=== PATIENT | male | born 1950 | race Caucasian/White ===

== ENCOUNTER 2020-04-01 17:44 | Emergency (ER) | payer OTHER, SELFPAY ==
[2020-04-01 18:07] VITALS: BP 179/80; PULSE 85; RESP 16; TEMP 36.5; O2SAT 96; BMI 33.5
--- NOTE | 2020-04-01 19:12 | ED_ITS ---
HPI - Male Genitourinary General: Chief complaint: Urogenital-Male Stated complaint: can't urinate Time Seen by Provider: 04/01/20 19:11 History of Present Illness: HPI Narrative: Patient is a 69-year-old male who comes to the ED [facility] because he was having some urine retention and an elevated blood pressure. Patient said he was not having any pain or discomfort. Patient said on the way here to the ED he stopped at a gas station just prior to arrival at the ED because his bladder felt full and he was able to urinate. Patient says he urinated a lot and he described his urine stream is normal. Currently here in the ED he was able to a urinate a little bit in a cup for us so we can send it to lab. Patient has no symptoms, and was able to urinate just prior to arrival to the ED. Associated symptoms: Deny dysuria, hematuria, nausea or vomiting Review of Systems Const: Denies: fever(s), chills or fatigue Eyes: Denies: change in vision or eye discomfort ENMT: Denies: throat pain, odynophagia, nasal discharge or nasal congestion Card: Denies: chest pain, palpitations, edema, swelling of feet/ankles, dyspn ea on exertion or orthopnea Resp: Denies: dyspnea, productive cough or non-productive cough GI: Denies: abdominal pain, nausea, vomiting, diarrhea, constipation or hematochezia : Denies: flank pain, difficulty urinating, dysuria or hematuria Musc: Denies: neck pain, back pain or extremity swelling Skin/Breast: Denies: rash or new lesions Neuro: Denies: headache(s), numbness in extremities or weakness in extremities PFS ED PFSH: Social History Smoking and tobacco status: never smoked Physical Exam Const: COMMON NORMALS: no acute distress, patient oriented x3, healthy errol earing and alert GENERAL APPEARANCE: cooperative and comfortable HENMT: COMMON NORMALS: normocephalic HEAD & SCALP: normocephalic MOUTH: Normal oral and palatal mucosa present THROAT: posterior oropharynx normal and uvula midline Eye: COMMON NORMALS: Equal, round and reactive pupils present PUPIL: Yes Equal, round and reactive pupils present Neck/C-Spine: COMMON NORMALS: supple GENERAL: Yes normal visual inspection Resp: COMMON NORMALS: normal respiratory effort, No retractions, No use of accessory muscles and clear to auscultation bilaterally AUSCULTATION: clear to auscultation bilaterally Cardio: COMMON NORMALS: regular rate, regular rhythm, S1 normal heart sound present, S2 normal heart sound present, No gallops present (Cardio), No clicks present (Cardio), No murmurs present (Cardio) and Peripheral pulses 2+ throughout RATE: regular rate RHYTHM: regular rhythm HEART SOUNDS: S1 normal heart sound present and S2 normal heart sound present PERIPHERAL PULSES: Peripheral pulses 2+ throughout GI: COMMON NORMALS: Normal to inspection, nondistended, normoactive bowel sounds present, Soft to palpation, non-tender and no masses PALPATION: Yes Soft to palpation : COMMON NORMALS: Yes no CVA tenderness BLADDER/KIDNEY EXAM: Yes no CVA tenderness Back/Pelvis: COMMON NORMALS: no CVA tenderness Extremity: COMMON NORMALS: normal to inspection Neuro: COMMON NORMALS: patient oriented x3 and moves all extremities SENSORIUM/ORIENTATION: Yes alert Skin: GENERAL SKIN EXAM: dry skin Course Vital Signs: Vital signs: Vital Signs Temperature 97.7 F 04/01/20 18:07 Pulse Rate 80 04/01/20 21:48 Respiratory Rate 17 04/01/20 21:48 Blood Pressure 149/87 04/01/20 21:48 Pulse Oximetry 97 04/01/20 21:48 MDM - Male MDM Narrative: Medical decision making narrative: Patient is a 69-year-old male that was sent over to the ED by the OR due to possible urinary retention and elevated blood pressure. While patient was driving to ED he stopped the gas station and was able to urinate normally. He is currently asymptomatic here in the ED and his blood pressure was 149/87, which she says is normal for him. Abdominal exam was normal. UA was unremarkable. Patient [facility] this coming [facility]. Patient was discharged and told he can return to ED if he has any worsening symptoms or urinary retention. Patient understood and agreed with plan. Lab Data: Attestation: I reviewed the patient's lab results. Labs: Lab Results 04/01/20 Range/Units 18:30 Urine Color Yellow (Yellow) Urine Appearance Clear (CLEAR) Urine pH 5 (5-7) Ur Specific Gravit y 1.025 (1.005-1.030) Urine Protein Neg (Negative) Urine Glucose (UA) Norm (Normal) Urine Ketones Negative (Negative) Urine Blood Neg (Negative) Urine Nitrate Negative (Negative) Urine Bilirubin Neg (NEGATIVE) Urine Urobilinogen Norm (Negative) mg/dL Ur Leukocyte Iman ase Negative (Negative) Discharge Plan Discharge Patient Disposition: Home, Self-Care Clinical Impression: Normal abdominal exam, Normal blood pressure, Asymptomatic Condition: Stable Discharge Orders: Discharge Order (Routine); Ordered 04/01/20 Ordered By: Travis Chauhan Referrals: Juan Carlos Velásquez [Primary Care Provider] - Discharge Diet: Regular Discharge Activity: Resume usual activity Activity Restrictions/Additional Instructions: Go to your next [facility] for further evaluation. You can always return to the ED for reevaluation, if you start experiencing any abdominal pain, increased BP and are unable to urinate. Discharge Date/Time: 04/01/20 21:49 Coding Level of Care Code ED Escalator Installer for Mahesh Fwd Exam Comprehensive
[2020-04-01 19:15] LABS: Add Urine Microscopic? NO
--- NOTE | 2020-04-01 19:18 | PC.NURSE ---
patient states he has been having trouble urinating the last three days. patient states he drank 8 bottle of water yesterday while mowing the lawn and hasn't been able to urinate more that a few milliliters since. patient states he has no abdominal pain. patient states he has not had the same symptoms in the past.
[2020-04-01 19:20] VITALS: BP 166/92; PULSE 81; RESP 16; O2SAT 96
[2020-04-01 19:20] LABS: Blood Urine Neg (Negative); Glucose Urine UA Norm (Normal); Ketones Urine Negative (Negative); Protein Urine Neg (Negative); Specific Gravity, Urine 1.025 (1.005-1.030); Urine Appearance Clear (CLEAR); Urine Color Yellow (Yellow); pH Urine 5 (5-7)
[2020-04-01 19:21] LABS: Bilirubin Urine Neg (NEGATIVE); Leukocyte Esterase Urine Negative (Negative); Nitrate Urine Negative (Negative); Urobilinogen Urine Norm (Negative)
[2020-04-01 21:48] VITALS: BP 149/87; PULSE 80; RESP 17; O2SAT 97
== END 2020-04-01 21:49 | disposition home or self-care (01) ==
PROVIDERS: Family Medicine; Emergency Provider Physician Assistant; PCP Internal Medicine
DX: Z03.89 Encounter for observation for other suspected diseases and conditions ruled out (principal)
CPT/HCPCS: 12345; 81003; 99282

== ENCOUNTER 2020-12-27 17:20 | Emergency (ER) | payer OTHER, SELFPAY ==
--- NOTE | 2020-12-27 | CTR_ITS ---
PROCEDURE INFORMATION: Exam: CT Head Without Contrast Exam date and time: 12/27/2020 7:58 PM Age: 70 years old Clinical indication: Altered mental status/memory loss and visual disturbance; Confusion or disorientation; Additional info: CVA TECHNIQUE: Imaging protocol: Computed tomography of the head without contrast. Radiation optimization: All CT scans at this facility use at least one of these dose optimization techniques: automated exposure control; mA and/or kV adjustment per patient size (includes targeted exams where dose is matched to clinical indication); or iterative reconstruction. COMPARISON: No relevant prior studies available. RADIATION DOSE METRICS: Total DLP (mGy-cm): 1005.5 FINDINGS: Brain: There is moderate cerebral atrophy. There is moderate diffuse heterogeneity of the white matter attenuation, consistent with chronic white matter ischemic changes. No intracranial hemorrhage. No intracranial mass. No midline shift of brain. Nicholson matter and white matter differentiation is preserved. Cerebral ventricles: No ventriculomegaly. Bones/joints: Unremarkable. No acute fracture. Paranasal sinuses: Visualized sinuses are unremarkable. No fluid levels. Mastoid air cells: Visualized mastoid air cells are well aerated. Vasculature: Scattered intracranial atherosclerosis. Soft tissues: Unremarkable. CT/CT head wo con* [id number] IMPRESSION: No acute intracranial abnormality identified. Radiation Dose CTDIVOL = (mGy): DLP = 1005.5 (mGy-cm)
[2020-12-27 17:27] VITALS: BP 171/90; PULSE 93; RESP 18; TEMP 36.9; O2SAT 97; BMI 32.5
[2020-12-27 18:27] VITALS: BP 191/94; PULSE 83; RESP 20; O2SAT 98
--- NOTE | 2020-12-27 18:30 | ED_ITS ---
HPI - Abdominal Pain General: Chief Complaint: Abdominal Pain Stated Complaint: CONSTIPATION X 7 DAYS, CONFUSION Time Seen by Provider: 12/27/20 18:21 History of Present Illness: HPI narrative: This patient is a 70-year-old male who presents to the emergency department with a complaint of abdominal pain. Patient states he has not had a bowel movement in 7 days. While in the waiting room the patient had a significant bowel movement and all symptoms resolved. At the bedside we were talking to the patient the daughter states that when she picked him up the patient seemed to be a little confused. The patient states is because he needed to have a bowel movement so bad. But the daughter has some concerns. I did discuss at length with patient about this transient complaint of confusion and the patient denies this. I again offered a full medical scre ening exam to the patient with family present we did review patient's blood pressure and blood pressure medications. Patient states he always has high blood pressure and he has declined a medical screening exam. Wishes to be discharged home nursing staff was present during this interview. Patient will be discharged home per his request. If symptoms fail to improve or worsen patient should return immediately to the emergency department for a medical screening exam. MD elicited complaint: abdominal pain Pertinent past history: constipation Associated Symptoms: Reports constipation; Denies chills, dysuria, fever(s), nausea and vomiting Review of Systems General: Reports: 10 or more systems reviewed and unremarkable except in HPI and below Const: Denies: fever(s), chills, body aches or fatigue Eyes: Denies: change in vision or blurry vision ENMT: Denies: throat pain, hoarseness or mouth pain Card: Denies: chest pain, palpitations, irregular heart rhythm, edema, swelling of feet/ankles or lightheadedness Resp: Denies: dyspnea, productive cough, non-productive cough, wheezing or pain on inspiration GI: Reports: abdominal pain and constipation; Denies: nausea or vomiting : Reports: flank pain; Denies: dysuria, urinary frequency, urinary urgency or urinary hesitancy Musc: Denies: neck pain, back pain, extremity pain, extremity swelling, joint pain, joint swelling, joint redness, joint warmth or limited range of motion Skin/Breast: Denies: rash, pruritus, erythema or skin tenderness Neuro: Denies: headache(s), numbness in extremities or weakness in extremities Psych: Denies: anxiety or depression PFSH ED PFSH: Social History Smoking and tobacco status: never smoked Physical Exam Const: COMMON NORMALS: no acute distress, average body habitus, patient oriented x3, no limitations, healthy appearing, alert and well nourished HENMT: COMMON NORMALS: normocephalic, atraumatic, external ears normal, EAC's normal, TM's normal bilaterally, Normal external nose present and Normal nasal mucous membranes and turbinates present HEAD & SCALP: normocephalic and atraumatic NOSE: Normal external nose present and Normal nasal mucous membranes and turbinates present EXTERNAL EAR: Yes external ears normal EXTERNAL AUDITORY CANAL: EAC's normal TYMPANIC MEMBRANE: TM's normal bilaterally Neck/C-Spine: COMMON NORMALS: full ROM, no lymphadenopathy, supple, no meningeal signs, no JVD, Thyroid normal and No carotid bruits THYROID: Thyroid normal Chest: COMMONS NORMALS: normal inspection of the chest, normal palpation of entire chest wall, normal inspection of the breasts and normal palpation of the breasts Breast/axilla inspection: Yes normal inspection of the breasts BREAST/AXILLA PALPATION: Yes normal palpation of the breasts Resp: COMMON NORMALS: normal respiratory effort, No retractions, No use of accessory muscles, clear to auscultation bilaterally and percussion normal AUSCULTATION: clear to auscultation bilaterally PERCUSSION: percussion normal Cardio: COMMON NORMALS: no JVD, regular rate, regular rhythm, S1 normal heart sound present, S2 normal heart sound present, No gallops present (Cardio), No clicks present (Cardio), No murmurs present (Cardio), No rub (Cardio) and Peripheral pulses 2+ throughout RATE: regular rate RHYTHM: regular rhythm HEART SOUNDS: S1 normal heart sound present and S2 normal heart sound present PERIPHERAL PULSES: Peripheral pulses 2+ throughout GI: COMMON NORMALS: Normal to inspection, nondistended, normoactive bowel sounds present, Soft to palpation, non-tender, No hepatosplenomegaly present, no masses and no bruits PALPATION: Yes Soft to palpation and Yes No hepatosplenomegaly present : COMMON NORMALS: Yes no CVA tenderness BLADDER/KIDNEY EXAM: Yes no CVA tenderness Back/Pelvis: COMMON NORMALS: no CVA tenderness, thoracic and lumbar spine normal to inspection, no thoracic nor lumbar tenderness, thoraco-lumbar ROM normal and straight leg raise negative bilaterally Extremity: COMMON NORMALS: normal to inspection, full ROM, capillary refill normal, no joint enlargement, no clubbing, cyanosis or edema, no calf tenderness and no pedal edema Neuro: COMMON NORMALS: patient oriented x3 SENSORIUM/ORIENTATION: Yes alert MENINGEAL SIGNS: Yes no meningeal signs Course ED course: Patient was offered a complete medical screening exam for his complaints and daughter's concerns transient confusion. He has declined a medical screening exam. Wishes to be discharged home nursing staff was present during this interview. Patient will be discharged home per his request. If symptoms fail to improve or worsen patient should return immediately to the emergency department for a medical screening exam. Vital Signs: Vital signs: Vital Signs Temperature 98.5 F 12/27/20 17:27 Pulse Rate 83 12/27/20 18:27 Respiratory Rate 20 H 12/27/20 18:27 Blood Pressure 191/94 12/27/20 18:27 Pulse Oximetry 98 12/27/20 18:27 MDM - Abdominal Pain Differential Diagnosis: Differential diagnosis abdominal pain: Likely abdominal pain and constipation Medical Records: Attestation: I reviewed the patient's medical records. Discharge Plan Discharge Patient Disposition: Home Clinical Impression: Constipation Condition: Stable Discharge Orders: Discharge ED (Routine); Ordered 12/27/20 Ordered By: Matt Can Referrals: Juan Carlos Velásquez [Primary Care Provider] - Discharge Diet: Usual diet Discharge Activity: Resume usual activity Patient Instructions: Opioid Safety Activity Restrictions/Additional Instructions: You are being discharged home per your request. If symptoms fail to improve or worsen return to the emergency department for a full medical screen exam. Encourage p.o. fluids. Zofran as needed and needed for nausea vomiting Take medications as prescribed Follow-up with your primary care physician in 2 to 3 days Tylenol Motrin as needed again for fever or pain Brown Cow Mix 4 ounces of prune juice with 2 ounces of milk of magnesium and 1 tablespoon of salted butter. Heat and microwave until bladder is softened. STIR and drink. Do not drink hot. It should be warm when you drink it. May do this twice daily to help with constipation. May take [id number] Senokot 8.6 mg once daily. May also take MiraLAX 1 packet twice a day as needed to help with constipation. As needed [id number] fleets enemas also if needed for constipation. Coding Level of Care Code ED Bus And Sys Integration Senior Manager for Mahesh Morse
--- NOTE | 2020-12-27 18:46 | CTR_ITS ---
PROCEDURE INFORMATION: Exam: CT Angiography Head With Contrast, Arteries Exam date and time: 12/27/2020 7:58 PM Age: 70 years old Clinical indication: Memory loss and visual disturbance and other: Confusion; Additional info: CVA TECHNIQUE: Imaging protocol: Computed tomography angiography of the head with intravenous contrast. 3D rendering (Not supervised by radiologist): MIP and/or 3D reconstructed images were created by the technologist. Radiation optimization: All CT scans at this facility use at least one of these dose optimization techniques: automated exposure control; mA and/or kV adjustment per patient size (includes targeted exams where dose is matched to clinical indication); or iterative reconstruction. Contrast material: OMNI 350; Contrast volume: 95 ml; Contrast route: INTRAVENOUS (IV); COMPARISON: No relevant prior studies available. RADIATION DOSE METRICS: Total DLP (mGy-cm): 2778.4 FINDINGS: ANTERIOR CIRCULATION: Right internal carotid artery: The moderate calcified atherosclerotic plaque volume in the cavernous segment right ICA with mild stenosis less than 50%. Right middle cerebral artery: Unremarkable. No occlusion or significant stenosis. No aneurysm. Right anterior cerebral artery: Unremarkable. No occlusion or significant stenosis. No aneurysm. Left internal carotid artery: Calcified atherosclerotic plaque volume cavernous segment left ICA with mild stenosis less than 50%. Left middle cerebral artery: Unremarkable. No occlusion or significant stenosis. No aneurysm. Left anterior cerebral artery: Unremarkable. No occlusion or significant stenosis. No aneurysm. POSTERIOR CIRCULATION: Right vertebral artery: Right vertebral artery occluded. Left vertebral artery: Unremarkable. No occlusion or significant stenosis. No aneurysm. Basilar artery: Unremarkable. No occlusion or significant stenosis. No aneurysm. Right posterior cerebral artery: Unremarkable. No occlusion or significant stenosis. No aneurysm. Left posterior cerebral artery: Unremarkable. No occlusion or significant stenosis. No aneurysm. Brain: No definite mass, mass effect, or midline shift. Cerebral ventricles: No ventriculomegaly. Bones/joints: Unremarkable. No acute fracture. Soft tissues: Unremarkable. IMPRESSION: 1. Occlusion of right vertebral artery. 2. No cerebral artery occlusions. PROCEDURE INFORMATION: Exam: CT Angiography Neck With Contrast Exam date and time: 12/27/2020 7:58 PM Age: 70 years old Clinical indication: Memory loss and visual disturbance and other: Confusion; Additional info: CVA TECHNIQUE: Imaging protocol: Computed tomography angiography of the neck with intravenous contrast. 3D rendering (Not supervised by radiologist): MIP and/or 3D reconstructed images were created by the technologist. Radiation optimization: All CT scans at this facility use at least one of these dose optimization techniques: automated exposure control; mA and/or kV adjustment per patient size (includes targeted exams where dose is matched to clinical indication); or iterative reconstruction. Contrast material: OMNI 350; Contrast volume: 95 ml; Contrast route: INTRAVENOUS (IV); COMPARISON: No relevant prior studies available. RADIATION DOSE METRICS: Total DLP (mGy-cm): 2778.4 FINDINGS: Right common carotid artery: No stenosis. No dissection or occlusion. Right internal carotid artery: Large volume of calcified and noncalcified atherosclerotic plaque of the proximal right internal carotid artery. Severe stenosis appears slightly greater than 70%. Right external carotid artery: Large atherosclerotic plaque volume at the origin of the right external carotid artery with severe stenosis greater than 70%. Right vertebral artery: Right vertebral artery is occluded throughout its course. Left common carotid artery: No stenosis. No dissection or occlusion. Left internal carotid artery: Large, bulky calcified and noncalcified atherosclerotic plaque volume of the proximal left internal carotid artery. Severe stenosis greater than 90% noted. Left external carotid artery: Moderate atherosclerotic plaque volume at the origin of the left external carotid artery with moderate stenosis 50-69%. Left vertebral artery: No stenosis. No dissection or occlusion. Bones/joints: The cervical spine demonstrates marked degenerative changes at multiple levels. Cervical spinal alignment is unremarkable. No acute fractures are identified. Soft tissues: Normal. No significant soft tissue swelling. CT/CT angio headneck* [id number] IMPRESSION: 1. 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 2. Severe stenosis of the proximal left internal carotid artery greater than 90%. 3. Severe stenosis of the proximal right internal carotid artery greater than 70%. REFERENCES: NASCET CRITERIA. The degree of internal carotid artery stenosis is based on NASCET criteria. Normal is no stenosis. Mild is less than 50% stenosis. Moderate is 50-69% stenosis. Severe is 70% to 99% stenosis. Total occlusion is no detectable patent lumen. Radiation Dose CTDIVOL = (mGy): DLP = 2778.4~2778.4 (mGy-cm)
--- NOTE | 2020-12-27 18:47 | ECG_ITS ---
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 Measurements Intervals [place] Rate: 87 P: UT: QRS: -9 QRSD: 115 T: 83 QT: 332 QTc: 401 Interpretive Statements Sinus RHYTHM MODERATE INTRAVENTRICULAR CONDUCTION DELAY [110+ ms QRS DURATION] ABNORMAL RHYTHM ECG No previous ECG available for comparison Electronically Signed On 12-28-2020 7:33:55 CDT by Martha Meehan M.D. [id number]
[2020-12-27 18:56] LABS: Basophils # 0.1 10^3/uL (0.0-0.1); Basophils % 1.2 %; Eosinophils # 0.3 10^3/uL (0.0-0.8); Eosinophils % 2.9 %; Hemoglobin 16.1 g/dL (11.7-16.6); Lymphocytes # 2.6 10^3/uL (0.8-4.8); Lymphocytes % 27.7 %; Mean Corpuscular Hemoglobin 30.4 pg (28.0-34.0); Mean Corpuscular Volume 86.8 fL (80-94); Mean Platelet Volume 10.8 fL (7.4-10.4); Monocytes # 0.7 10^3/uL (0.2-0.9); Monocytes % 7.5 %; Neutrophils # 5.62 10^3/uL (1.8-7.7); Neutrophils % 60.3 %; Nucleated Red Blood Cells % 0 %; Platelet Count 258 10^3/cmm (130-400); White Blood Count 9.3 10^3/uL (4.0-10.0)
[2020-12-27 19:01] LABS: INR 1.05 (0.8-1.2)
[2020-12-27 19:02] LABS: Partial Thromboplastin Time 35.1 SECONDS (23.9-36.7)
[2020-12-27 19:05] LABS: Alanine Aminotransferase 27 U/L (0-41); Albumin Level 4.5 g/dL (3.5-5.2); Alkaline Phosphatase 101 IU/L (40-130); Anion Gap 17.7 (5-19); Aspartate Amino Transferase 22 U/L (0-40); Blood Urea Nitrogen 17 mg/dL (8-23); Calcium 10.1 mg/dL (8.5-10.5); Carbon Dioxide 23 mmol/L (22-29); Chloride 99 mmol/L (98-107); Globulin 3.8 g/dL (1.3-4.6); Glomerular Filtration Rate 74.1 mL/min (90-130); Glucose 141 mg/dL (65-115); Osmolality Calculated 286 mOsm/kg (285-295); Potassium 3.7 mmol/L (3.5-5.1); Sodium 136 mmol/L (136-145); Total Bilirubin 0.6 mg/dL (0.15-1.2); Total Protein 8.3 g/dL (6.6-8.7)
[2020-12-27 19:27] LABS: Add Urine Microscopic? NO
[2020-12-27 19:36] LABS: Urine Appearance Clear (CLEAR); Urine Color Yellow (Yellow); pH Urine 5 (5-7)
[2020-12-27 19:37] LABS: Bilirubin Urine Neg (Negative); Blood Urine Neg (Negative); Glucose Urine UA Norm (Normal); Ketones Urine Negative (Negative); Leukocyte Esterase Urine Negative (Negative); Nitrate Urine Negative (Negative); Protein Urine Neg (Negative); Urobilinogen Urine Norm (Negative)
[2020-12-27 19:41] LABS: Amphetamines Screen Urine Negative (Negative); Barbiturates Screen Urine Negative (Negative); Benzodiazepines Screen Urine Negative (Negative); Cocaine Screen Urine Negative (Negative); Opiate Screen Urine Negative (Negative); PCP Screen Urine Negative (Negative); THC Screen Urine Positive (Negative)
[2020-12-27] MEDS: iohexol 350 mg/mL 100 mL Btl IV (20:13)
[2020-12-27 20:54] VITALS: BP 150/88; PULSE 87; RESP 17; O2SAT 97
[2020-12-27 22:30] VITALS: BP 158/94; PULSE 73; RESP 20; O2SAT 96
[2020-12-27 23:25] VITALS: BP 159/87; PULSE 62; O2SAT 95
== END 2020-12-27 23:37 | disposition home or self-care (01) ==
PROVIDERS: Emergency Provider Emergency Medicine; PCP Internal Medicine
DX: K59.00 Constipation, unspecified (principal); R41.0 Disorientation, unspecified
CPT/HCPCS: 70450; 70496; 70498; 80053; 80306; 81003; 85025; 85610; 85730; 93005; 99285; Q9967

== ENCOUNTER 2023-11-14 22:55 | Emergency (ER) | payer OTHER, SELFPAY ==
[2023-11-14 22:56] VITALS: BP 160/109; PULSE 84; RESP 20; TEMP 36.9; O2SAT 99; BMI 25.0
--- NOTE | 2023-11-14 23:00 | ECG_ITS ---
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 Measurements Intervals [place] Rate: 69 P: 114 CO: 216 QRS: -30 QRSD: 120 T: 65 QT: 383 QTc: 413 Interpretive Statements ELECTRONIC ATRIAL PACEMAKER BORDERLINE LEFT AXIS DEVIATION [QRS AXIS < -20] MODERATE INTRAVENTRICULAR CONDUCTION DELAY [110+ ms QRS DURATION] ABNORMAL RHYTHM ECG Compared to ECG 12/27/2020 18:59:21 Sinus rhythm no longer present Electronically Signed On 11-16-2023 23:17:57 RN DERMATOLOGY by Wero Rodgers M.D. [id number] f
--- NOTE | 2023-11-14 23:00 | XRR_ITS ---
PROCEDURE INFORMATION: Exam: XR Chest Exam date and time: 11/14/2023 11:14 PM Age: 73 years old Clinical indication: Injury or trauma; Fall; Other: Unknown TECHNIQUE: Imaging protocol: Radiologic exam of the chest. Views: 1 view. COMPARISON: CR (CHEST, ) 11/14/2023 11:14 PM FINDINGS: Lungs: Unremarkable. No consolidation. Pleural spaces: Unremarkable. No pleural effusion. No pneumothorax. Heart/Mediastinum: Unremarkable. No cardiomegaly. Left-sided cardiac pacemaker device with [address] Bones/joints: Unremarkable. XR/XR chest 1V portable [id number] IMPRESSION: No acute findings.
--- NOTE | 2023-11-14 23:00 | XRR_ITS ---
PROCEDURE INFORMATION: Exam: XR Right Shoulder Exam date and time: 11/14/2023 11:14 PM Age: 73 years old Clinical indication: Injury or trauma; Fall; Other: Unknown; Additional info: Fall pain TECHNIQUE: Imaging protocol: Radiologic exam of the right shoulder. Views: 2 or more views. COMPARISON: CR XR chest 1V portable [id number] 11/14/2023 11:14 PM FINDINGS: Bones/joints: Severe degenerative changes at the right acromioclavicular joint. No acute fracture. Soft tissues: Normal. XR/XR shoulder RT min 2V* [id number] IMPRESSION: 1. No acute fracture. 2. Severe degenerative changes at the right acromioclavicular joint.
--- NOTE | 2023-11-14 23:00 | CTR_ITS ---
PROCEDURE INFORMATION: Exam: CT Head Without Contrast Exam date and time: 11/14/2023 11:29 PM Age: 73 years old Clinical indication: Injury or trauma; Fall; Blunt trauma (contusions or hematomas); Patient HX: Lact posterior upper head, patient states he is starting to get a headache; Additional info: Fall, post head lac TECHNIQUE: Imaging protocol: Computed tomography of the head without contrast. Radiation optimization: All CT scans at this facility use at least one of these dose optimization techniques: automated exposure control; mA and/or kV adjustment per patient size (includes targeted exams where dose is matched to clinical indication); or iterative reconstruction. COMPARISON: CT angio headneck* [id number] 12/27/2020 8:25 PM RADIATION DOSE METRICS: Total DLP (mGy-cm): 1214.74 FINDINGS: Brain: Subcortical and periventricular white matter changes consistent with small-vessel ischemic disease in the appropriate clinical setting. Small-vessel ischemic disease. Encephalomalacia in the left parietal lobe posteriorly. No acute intracranial abnormality. Cerebral ventricles: No ventriculomegaly. Paranasal sinuses: Visualized sinuses are unremarkable. No fluid levels. Mastoid air cells: Visualized mastoid air cells are well aerated. Bones/joints: See Soft tissues finding. Soft tissues: Small soft tissue hematoma overlying the left posterior skull with no underlying skull fracture. CT/CT head wo con* [id number] IMPRESSION: 1. No acute intracranial abnormality. 2. Small-vessel ischemic disease. 3. Encephalomalacia in the left parietal lobe posteriorly. 4. Small soft tissue hematoma overlying the left posterior skull with no underlying skull fracture.
--- NOTE | 2023-11-14 23:08 | ED_ITS ---
HPI - Fall 2 General: Chief Complaint: Fall Stated Complaint: Fall/ Head Lac Time Seen by Provider: 11/14/23 22:59 History of Present Illness: Patient presents to the ER status post fall with posterior head laceration. Patient is on Plavix and is also complaining of right shoulder pain. Patient is unsure how he fell but he thinks he may have tripped. Patient stated he fell he recently and has a wound on the front of his head that has been glued. Patient has no other complaints at this time. Patient does smell like urine and is unkempt in appearance. Review of Systems 2 General: Reports: 10 or more systems reviewed and unremarkable except in HPI and below PFSH ED 2 PFSH: Medical History Stroke Hypertension Family History Other CAD (coronary artery disease) Hyperlipidemia Denies family history of Diabetes Cancer Hypertension Social History Smoking and tobacco/nicotine status: never used tobacco/nicotine Alcohol intake: never Substance/Drug Use: never Physical Exam 2 Const: COMMON NORMALS: no acute distress, average body habitus, patient oriented x3, no limitations, healthy appearing, alert and well nourished HENMT: COMMON NORMALS: normocephalic, external ears normal, Normal external nose present, moist oral mucous membranes and oropharynx normal; head/scalp not atraumatic (3 cm laceration posterior superior occipital region) HEAD & SCALP: normocephalic; not atraumatic (3 cm laceration posterior superior occipital region) NOSE: N ormal external nose present EXTERNAL EAR: Yes external ears normal Neck/C-Spine: COMMON NORMALS: full ROM, no lymphadenopathy, supple, no meningeal signs, no JVD and Thyroid normal THYROID: Thyroid normal Chest: COMMONS NORMALS: normal inspection of the chest and normal palpation of entire chest wall Resp: COMMON NORMALS: normal respiratory effort, No retractions, No use of accessory muscles and clear to auscultation bilaterally AUSCULTATION: clear to auscultation bilaterally Cardio: COMMON NORMALS: no JVD, regular rate, regular rhythm, S1 normal heart sound present, S2 normal heart sound present, No gallops present (Cardio), No clicks present (Cardio), No murmurs present (Cardio) and No rub (Cardio) R ATE: regular rate RHYTHM: regular rhythm HEART SOUNDS: S1 normal heart sound present and S2 normal heart sound present GI: COMMON NORMALS: Normal to inspection, nondistended, normoactive bowel sounds present, Soft to palpation, non-tender, No hepatosplenomegaly present, no masses and no bruits PALPATION: Yes Soft to palpation and Yes No hepatosplenomegaly present Extremity: NARRATIVE EXTREMITY EXAM: Tenderness to palpation over right anterior shoulder region limited range of motion secondary to pain no obvious gross deformity or crepitus noted Neuro: COMMON NORMALS: patient oriented x3 SENSORIUM/ORIENTATION: Yes alert MENINGEAL SIGNS: Yes no meningeal signs Procedures Laceration Laceration 1: Site: scalp Size (cm): 4 Description: linear Depth: simple, single layer Pre-repair: wound explored and deep structures intact Skin layer closed with: other (Lashell) Number of sutures: 5 Course 2 Vital Signs: Vital signs: Vital Signs Temperature 98.4 F 11/14/23 22:56 Pulse Rate 98 11/15/23 01:43 Respiratory Rate 24 H 11/14/23 23:22 Blood Pressure 148/88 11/15/23 01:43 Pulse Oximetry 96 11/15/23 01:43 Oxygen Delivery Me thod Room Air 11/15/23 01:43 MDM - Fall Medical Decision Making Patient CBC CMP chest x-ray right shoulder x-ray head CT PT/INR performed chest x-ray was negative, head CT was negative for acute intracranial abnormalities, shoulder x-ray is no acute fracture but severe changes. BUN/creatinine was mildly elevated at 33 and 1.5. Approximately 5 lashell placed in a laceration on the posterior scalp bleeding is controlled. Patient tolerated procedure well. Patient be discharged from the ER and should follow-up with his PCP in approximately 7 days for staple removal. Differential Diagnosis Unlikely syncope, dislocation of shoulder region, fracture of wrist, compression fracture, concussion with loss of consciousness or concussion without loss of consciousness Medical Records I reviewed the patient's medical records. Lab Data I reviewed the patient's lab results. 11/14/23 22:59 11/14/23 22:59 Radiology Impressions Chest X-Ray 11/14/23 23:00 IMPRESSION: No acute findings. Head CT 11/14/23 23:00 IMPRESSION: 1. No acute intracranial abnormality. 2. Small-vessel ischemic disease. 3. Encephalomalacia in the left parietal lobe posteriorly. 4. Small soft tissue hematoma overlying the left posterior skull with no underlying skull fracture. Shoulder X-Ray 11/14/23 23:00 IMPRESSION: 1. No acute fracture. 2. Severe degenerative changes at the right acromioclavicular joint. Laboratory Results WBC 8.80 10^3/uL (3.29-11.43) 11/14/23 22:59 RBC 4.84 10^6/uL (3.85-5.65) 11/14/23 22:59 Hgb 15.10 g/dL (11.27-16.99) 11/14/23 22:59 Hct 41.7 % (37-53) 11/14/23 22:59 MCV 86.2 fl (82-101) 11/14/23 22:59 MCH 31.2 pg (27-33) 11/14/23 22:59 MCHC 36.2 g/dL (30-55) 11/14/23 22:59 RDW 13.5 % (12.1-15.1) 11/14/23 22:59 Plt Count 214 10^3/cmm (157-399) 11/14/23 22:59 MPV 10.4 fL (7.4-10.4) 11/14/23 22:59 Neut % (Auto) 63.5 % 11/14/23 22:59 Lymph % (Auto) 25.6 % 11/14/23 22:59 [place] % (Auto) 7.8 % 11/14/23 22:59 Eos % (Auto) 1.5 % 11/14/23 22:59 Baso % (Auto) 1.3 % 11/14/23 22:59 Neut # (Auto) 5.59 10^3/uL (1.8-7.7) 11/14/23 22:59 Lymph # (Auto) 2.3 10^3/uL (0.8-4.8) 11/14/23 22:59 [place] # (Auto) 0.7 10^3/uL (0.2-0.9) 11/14/23 22:59 Eos # (Auto) 0.1 10^3/uL (0.0-0.8) 11/14/23 22:59 Baso # (Auto) 0.1 10^3/uL (0.0-0.1) 11/14/23 22:59 Nucleated RBC % (auto) 0 % 11/14/23 22:59 Nucleated RBCs # 0.0 /100WBC 11/14/23 22:59 PT 14.60 SECONDS (12.1-14.9) 11/14/23 22:59 INR 1.11 (0.8-1.2) 11/14/23 22:59 Sodium 136 mmol/L (136-145) 11/14/23 22:59 Potassium 4.0 mmol/L (3.5-5.1) 11/14/23 22:59 Chloride 98 mmol/L (98-107) 11/14/23 22:59 Carbon Dioxide 21 mmol/L (22-29) L 11/14/23 22:59 Anion Gap 21.0 (5-19) H 11/14/23 22:59 BUN 33 mg/dL (8-23) H 11/14/23 22:59 Creatinine 1.5 mg/dL (0.7-1.2) H 11/14/23 22:59 GFR Calculation Not Reportable 11/14/23 22:59 Glucose 121 mg/dL (65-115) H 11/14/23 22:59 Calculated Osmolality 291 mOsm/kg (285-295) 11/14/23 22:59 Calcium 10.6 mg/dL (8.5-10.5) H 11/14/23 22:59 Total Bilirubin 1.1 mg/dL (0.15-1.2) 11/14/23 22:59 AST 31 U/L (0-40) 11/14/23 22:59 ALT 20 U/L (0-41) 11/14/23 22:59 Alkaline Phosphatase 101 U/L (40-130) 11/14/23 22:59 Total Protein 7.4 g/dL (6.6-8.7) 11/14/23 22:59 Albumin 3.7 g/dL (3.5-5.2) 11/14/23 22:59 Globulin 3.7 g/dL (1.3-4.6) 11/14/23 22:59 All radiology interpretation(s) finalized by discharge EKG Data EKG 1: I personally reviewed and interpreted this EKG as follows: EKG interpretation date: 11/14/23 EKG interpretation time: 23:10 Prior EKG tracings: available for review Interpretation: Ventricular rate 69 beats minute, OK interval 216, QRS duration 120, QTc of 4 3, electronic atrial pacemaker, borderline LAD, moderate intraventricular conduction delay Discharge Plan Discharge Patient Disposition: Home Clinical Impression: Fall Qualifiers: Encounter type: initial encounter Qualified Code(s): W19.XXXA - Unspecified fall, initial encounter Laceration of head Qualifiers: Encounter type: initial encounter Location of open wound of head: scalp Foreign body presence: without foreign body Qualified Code(s): S01.01XA - Laceration without foreign body of scalp, initial encounter Condition: Stable Prescriptions: No Action atorvastatin 80 mg tablet 80 mg PO DAILY clopidogrel 75 mg tablet 75 mg PO DAILY escitalopram oxalate 10 mg tablet 10 mg PO DAILY metformin 1,000 mg tablet 1,000 mg PO BID hydrochlorothiazide 25 mg tablet 25 mg PO DAILY lisinopril 40 mg tablet 40 mg PO DAILY Discharge Orders: Discharge ED (Routine); Ordered 11/15/23 Ordered By: Shahid Gonzalez Referrals: Juan Carlos Velásquez [Primary Care Provider] - 1 week Patient Instructions: Scalp Laceration Activity Restrictions/Additional Instructions: Please follow-up with your primary care doctor in approximately 7 days for reevaluation and probable staple removal. Coding Level of Care Code ED [employer] for Mahesh Morse
[2023-11-14 23:16] LABS: INR 1.11 (0.8-1.2)
[2023-11-14 23:22] VITALS: BP 160/109; PULSE 70; RESP 24; O2SAT 99
[2023-11-14 23:22] LABS: Basophils # 0.1 10^3/uL (0.0-0.1); Basophils % 1.3 %; Eosinophils # 0.1 10^3/uL (0.0-0.8); Eosinophils % 1.5 %; Hematocrit 41.7 % (37-53); Lymphocytes # 2.3 10^3/uL (0.8-4.8); Lymphocytes % 25.6 %; Mean Corpuscular HGB Conc 36.2 g/dL (30-55); Mean Corpuscular Hemoglobin 31.2 pg (27-33); Mean Corpuscular Volume 86.2 fl (82-101); Mean Platelet Volume 10.4 fL (7.4-10.4); Monocytes # 0.7 10^3/uL (0.2-0.9); Monocytes % 7.8 %; Neutrophils # 5.59 10^3/uL (1.8-7.7); Neutrophils % 63.5 %; Nucleated Red Blood Cells % 0 %; Platelet Count 214 10^3/cmm (157-399); Red Blood Count 4.84 10^6/uL (3.85-5.65); Red Cell Distribution Width 13.5 % (12.1-15.1)
[2023-11-14 23:23] LABS: Alanine Aminotransferase 20 U/L (0-41); Albumin Level 3.7 g/dL (3.5-5.2); Alkaline Phosphatase 101 U/L (40-130); Aspartate Amino Transferase 31 U/L (0-40); Blood Urea Nitrogen 33 mg/dL (8-23); Calcium 10.6 mg/dL (8.5-10.5); Carbon Dioxide 21 mmol/L (22-29); Chloride 98 mmol/L (98-107); Globulin 3.7 g/dL (1.3-4.6); Glucose 121 mg/dL (65-115); Osmolality Calculated 291 mOsm/kg (285-295); Sodium 136 mmol/L (136-145); Total Bilirubin 1.1 mg/dL (0.15-1.2); Total Protein 7.4 g/dL (6.6-8.7)
--- NOTE | 2023-11-15 00:44 | PC.NURSE ---
Effected area cleaned with sterile water and 4x4 gauzes. Bellerose applied to back of head by physician at bedside.
--- NOTE | 2023-11-15 01:17 | PC.NURSE ---
This nurse spoke with the patient's daughter, Marily, per request of the patient to come set up a ride for back home. Daughter Marily stated that she was unable to pickup and transfer patient until after 1900 on 11/15.
[2023-11-15 01:43] VITALS: BP 148/88; PULSE 98; O2SAT 96
--- NOTE | 2023-11-15 02:11 | PC.NURSE ---
Ride was set up via EMS for patient transport back home.
[2023-11-15 02:25] VITALS: BP 164/97; PULSE 96; O2SAT 96
== END 2023-11-15 02:27 | disposition home or self-care (01) ==
PROVIDERS: Emergency Provider Emergency Medicine; PCP Internal Medicine
DX: S01.01XA Laceration without foreign body of scalp, initial encounter (principal); Z79.02 Long term (current) use of antithrombotics/antiplatelets; Z79.84 Long term (current) use of oral hypoglycemic drugs; I10 Essential (primary) hypertension; Z86.73 Personal history of transient ischemic attack (TIA), and cerebral infarction without residual deficits; W01.0XXA Fall on same level from slipping, tripping and stumbling without subsequent striking against object, initial encounter
CPT/HCPCS: 12002; 70450; 71045; 73030; 80053; 85025; 85610; 93005; 99285